=== PATIENT | female | born 1965 | race Caucasian/White ===

== ENCOUNTER 2017-02-08 03:03 | Inpatient (IN) ==
[2017-02-07 14:08] LABS: MANUAL DIFF NEEDED? NO; URINE MICRO REVIEW NEEDED? NO; URINE SOURCE CLEAN CATCH
[2017-02-07 14:13] LABS: BILIRUBIN URINE NEGATIVE (NEGATIVE); BLOOD URINE SMALL (NEGATIVE); COLOR YELLOW; GLUCOSE URINE NEGATIVE (NEGATIVE); LEUKOCYTES URINE SMALL (NEGATIVE); NITRITE URINE NEGATIVE (NEGATIVE); PROTEIN URINE NEGATIVE (NEGATIVE); SP GRAVITY URINE 1.015; TURBIDITY URINE CLEAR (CLEAR); UR EPITHELIAL CELLS <10 /HPF (<10); URINE BACTERIA 1+ /HPF; UROBILINOGEN URINE NORMAL (NORMAL)
[2017-02-07 14:15] LABS: BASO% 0.7 % (0.0-0.8); EOS# 0.19 X1000 (0.0-0.7); EOS% 2.3 % (0.0-10.0); HEMATOCRIT 46.3 % (37.0-47.0); HEMOGLOBIN 15.3 g/dL (12.0-16.0); LYMPH# 2.76 X1000 (1.2-3.4); LYMPH% 33.3 % (20.5-51.1); MCH 31.7 PG (27-31); MCV 95.9 FL (81-99); MONO# 0.73 X1000 (0.11-0.59); MONO% 8.8 % (1.7-9.3); MPV 10.8 FL (7.4-10.4); NEUT% 54.9 % (42.2-75.2); PLT 305 X1000 (130-400); RBC 4.83 XMIL (4.2-5.4)
[2017-02-07 14:22] LABS: PROTIME 10.5 Seconds (9.2-11.7); PTT 26.4 Seconds (22.0-36.0)
[2017-02-07 14:41] LABS: AGAP 12; BUN 10 mg/dL (8-22); CALCIUM 9.5 mg/dL (8.8-10.2); CHLORIDE 99 mmol/L (98-107); COSMO 274; POTASSIUM 4.1 mmol/L (3.5-5.1); SODIUM 138 mmol/L (136-145); TCO2 27 mmol/L (25-35)
--- NOTE | 2017-02-07 16:01 | EKG Report ---
Test Performed on : 02/07/2017 1:45:50 PM Test Reason : PAT Blood Pressure : / mmHG Vent. Rate : 058 BPM Atrial Rate : 058 BPM P-R Int : 114 ms QRS Dur : 072 ms QT Int : 436 ms P-R-T Axes : 055 037 047 degrees QTc Int : 428 ms Sinus bradycardia. Otherwise normal ECG No previous ECGs available Confirmed by Shyam ROSE, Rory Villeda ([id number]) on 02/09/2017 7:15:42 AM
[2017-02-08] MEDS ORDERED: LYRICA ONE (06:05)
[2017-02-08] MEDS ORDERED: REGLAN ONE (06:05)
[2017-02-08] MEDS ORDERED: PEPCID ONE (06:05)
[2017-02-08] MEDS ORDERED: COLACE ONE (06:05)
[2017-02-08] MEDS ORDERED: CELEBREX ONE (06:06)
[2017-02-08] MEDS ORDERED: KEFZOL 2 GM/D5W 0 GM/0 ML IVPB ONE (06:06)
[2017-02-08] MEDS ORDERED: LR 1,000 ML ONE (06:06)
[2017-02-08] MEDS ORDERED: ULTRAM PO PRN (06:33)
[2017-02-08] MEDS ORDERED: DIPRIVAN 1% ONE (06:35)
[2017-02-08] MEDS ORDERED: NORCO-10 PO PRN (06:35)
[2017-02-08] MEDS ORDERED: MORPHINE IV PRN (06:35)
[2017-02-08] MEDS ORDERED: FENTANYL ONE (06:35)
[2017-02-08] MEDS ORDERED: CLINDAMYCIN 600 MG/NS 600 MG/50 ML IVPB ONE (06:49)
[2017-02-08] MEDS ORDERED: TORADOL ONE (06:52)
[2017-02-08] MEDS ORDERED: SODIUM CHLORIDE 0.9% ONE (06:52)
[2017-02-08] MEDS ORDERED: MARCAINE 0.25% PF/EPI 1:200,000 ONE (06:52)
[2017-02-08] MEDS ORDERED: CYKLOKAPRON 1,000 MG/NS 1,000 MG/100 ML IVPB ONE (06:52)
[2017-02-08] MEDS ORDERED: NEOSPORIN G.U. IRRIGANT ONE (06:53)
[2017-02-08] MEDS ORDERED: EXPAREL 1.3% ONE (06:53)
--- NOTE | 2017-02-08 07:44 | HISTORY AND PHYSICAL ---
CHIEF COMPLAINT: Degenerative joint disease of the left hip and hip pain. HISTORY OF PRESENT ILLNESS: Ms. De La Torre is a 51-year-old white female with a history of left hip pain for about 4 years now. She came into the office and x-ray were obtained of her left hip which revealed images consistent with advanced degenerative joint disease. We plan to perform a left total hip arthroplasty today. PAST MEDICAL HISTORY: Hypertension, neuropathy, osteoarthritis, anxiety, and obesity. PAST SURGICAL HISTORY: Hysterectomy, back surgery, A A of the right knee. FAMILY HISTORY: Noncontributory. SOCIAL HISTORY: She is single. She smokes about 10 cigarettes a day. Denies using alcohol. MEDICATIONS: Her current home medications are Ultram 50 mg p.o. q.6 hours p.r.n. for pain, Ativan 1 mg p.o. b.i.d., Soma 350 mg p.o. t.i.d. lisinopril/hydrochlorothiazide 10/12.5 mg tablet 1 p.o. daily, Lyrica 50 mg p.o. daily, Trileptal 150 mg p.o. b.i.d., Mobic 15 mg p.o. daily. ALLERGIES: Ceclor and codeine and morphine. REVIEW OF SYSTEMS: HEENT: The patient wears glasses. Denies any dentures or hearing aids or any other HEENT problems. Cardiac: Patient denies any chest pain, shortness of breath, or history of heart problems. Pulmonary: Patient denies any wheezing, coughing, hemoptysis but does report smoking cigarettes. Gastrointestinal: Patient denies any nausea, vomiting, diarrhea, or any chronic GI problems. Genitourinary: The patient denies any urinary tract infections or any genitourinary problems. Neurological: Patient reports some numbness bilaterally in her feet. Musculoskeletal: Patient reports left hip pain and right knee pain, as well as back pain. PHYSICAL EXAMINATION: GENERAL: The patient is awake, sitting in bed. She is articulate and able to answer questions appropriately. HEENT: Head is normocephalic, atraumatic. Pupils equal, round, reactive to light. Nares patent. Throat without exudate. CARDIAC: S1, S2 auscultated. No murmur, rub, or gallop noted. LUNGS: Clear to auscultation bilaterally in all lung lanza. ABDOMEN: Soft, nontender, nondistended. Bowel sounds present in all quadrants. GENITOURINARY: Not examined. NEUROLOGICAL: Patient has good sensation to dull touch but decreased sensation in her feet bilaterally. MUSCULOSKELETAL: The patient has left hip pain with passive range of motion, as well as palpation of the left hip. IMPRESSION: Degenerative joint disease of the left hip. PLAN: Left total hip arthroplasty. The risks, benefits, and alternatives of the surgery including risk of anesthesia, infection, bleeding, damage to blood vessels, nerves, tendons, ligaments, and no guarantees were discussed with the patient. The patient agrees to proceed with the surgery at this time. Dictated by BURTON Everett for Sterling Villa MD cc: BURTON Everett MD
[2017-02-08 08:15] LABS: URINE MICRO REVIEW NEEDED? NO; URINE SOURCE CATH
[2017-02-08] MEDS ORDERED: LYRICA PO SCH (09:00)
[2017-02-08] MEDS ORDERED: CELEBREX PO SCH (09:00)
[2017-02-08 09:12] LABS: COLOR STRAW; TURBIDITY URINE CLEAR (CLEAR)
[2017-02-08 09:13] LABS: BILIRUBIN URINE NEGATIVE (NEGATIVE); BLOOD URINE TRACE (NEGATIVE); GLUCOSE URINE NEGATIVE (NEGATIVE); LEUKOCYTES URINE SMALL (NEGATIVE); NITRITE URINE NEGATIVE (NEGATIVE); PH URINE 6.5; PROTEIN URINE NEGATIVE (NEGATIVE); SP GRAVITY URINE 1.009; UROBILINOGEN URINE NORMAL (NORMAL)
[2017-02-08 09:14] LABS: UR EPITHELIAL CELLS <10 /HPF (<10); URINE BACTERIA 2+ /HPF; URINE RBC <10 /HPF (<10)
[2017-02-08] MEDS ORDERED: DILAUDID ONE (09:38)
[2017-02-08] MEDS ORDERED: NS 1,000 ML ONE (09:40)
[2017-02-08] MEDS: DILAUDID ONE ×2 (09:45→09:55)
[2017-02-08] MEDS ORDERED: XYLOCAINE-MPF 2% ONE (09:58)
[2017-02-08] MEDS ORDERED: EPHEDRINE ONE (09:58)
[2017-02-08] MEDS ORDERED: LR 2,000 ML ONE (09:58)
[2017-02-08] MEDS ORDERED: ZOFRAN ONE (09:58)
[2017-02-08] MEDS ORDERED: ROBINUL ONE (09:58)
[2017-02-08] MEDS ORDERED: OFIRMEV 1000 MG/ISOTONIC SOLN 1,000 MG/100 ML BOTTLE ONE (09:58)
[2017-02-08] MEDS ORDERED: DECADRON ONE (09:59)
[2017-02-08] MEDS ORDERED: PHENERGAN ONE (10:18)
[2017-02-08] MEDS ORDERED: DEMEROL IV PRN (11:17)
[2017-02-08] MEDS ORDERED: PERCOCET-10 PO PRN (11:17)
--- NOTE | 2017-02-08 12:25 | OPERATIVE NOTE ---
PROCEDURE DATE: 02/08/2017 PREOPERATIVE DIAGNOSIS: Degenerative joint disease, left hip. POSTOPERATIVE DIAGNOSIS: Degenerative joint disease,left hip. PROCEDURE: Left anterior hip replacement. SURGEON: Arturo Villa MD. ASSISTING: BURTON Tobias. ANESTHESIA: General. COMPLICATION: None. PROCEDURE IN DETAIL: This 51-year-old female presents for a left hip replacement. Risks, benefits, and no guarantees were discussed, and the patient is willing to proceed. The patient was taken to the operating room and given satisfactory anesthesia. She was placed on the [place] table, and left hip prepped and draped for an anterior approach. A time-out was taken for operative site, procedure, and patient. An anterior approach to the left hip was undertaken through a roughly 10-12 cm incision starting 1 cm distal and lateral to the anterior-superior iliac spine. Longitudinal incision was made in the fascia of the tensor fascia melvina and blunt dissection along the inner membrane, taken down to the anterior hip capsule. The probe and retractors were placed over the superior and anterior aspect of the femoral neck, and a femoral neck capsulotomy made longitudinally. An osteotomy was then made along the femoral neck at a roughly 45-degree angle, 8-10 mm above the lesser trochanter. The femoral head was removed. Osteophytes were debrided about the acetabulum. Sequential reaming of the acetabulum up to a 53 reamer was undertaken. A DePuy [place] 54 outer diameter HUGHES-coated cup was then impacted in the acetabulum under fluoroscopic guidance in roughly 45 degrees of abduction and 10 degrees of anteversion. An additional 25 length screw was placed in the 12 o'clock position of the cup, but the cup had good stability from impaction. Afterwards, a 36, zero-degree inner diameter polyethylene liner was impacted in the cup. After completion of the acetabulum, the [place] table was used to extend the hip and externally rotate it to facilitate broaching of the proximal femur. Sequential broaching of the femur was then undertaken up to DePuy [place] size 11 stem. This had good axial and rotational stability. A standard neck geometry with a 1.5 neck taper head was then placed on this, with good range of motion and stability of the hip. The trial implant was removed and a standard neck size 11 Corail impacted into the proximal femur with secure axial and rotational stability. A ceramic 1.5 neck length 36 head was impacted onto this and the hip reduced. Final range of motion revealed no anterior instability in extension up to 70 or 80 degrees. Good adventist of leg lengths was achieved as well as alignment of the implants. The C-arm was used to verify accurate hardware placement. The wound was then copiously irrigated with irrigant. The joint capsule was injected with Exparel for pain management. A Hemovac drain was placed. It was then closed with a running 0 Vicryl in the tensor fascia, 2-0 Vicryl in the subcutaneous, and skin rohit. She was then recovered from anesthesia and sterile dressings applied, and transferred to the recovery room in stable condition. No intraoperative complications were noted. Instrument count and sponge count were correct at the time of closure. cc: Sterling Villa MD
[2017-02-08] MEDS: VANCOMYCIN 1 GM/NS 1 GM/250 ML IVPB IV SCH (13:12)
[2017-02-08] MEDS: SOMA PO SCH ×2 (13:13→17:18)
[2017-02-08] MEDS: PRINZIDE 10/12.5MG PO SCH (13:15)
[2017-02-08] MEDS: NS 1,000 ML IV SCH ×2 (13:15→21:23)
[2017-02-08] MEDS ORDERED: CYKLOKAPRON 1,000 MG in NS 100 ML IV ONE ×4 (13:30)
[2017-02-08] MEDS: DEMEROL PO PRN (19:42)
[2017-02-08] MEDS: ATIVAN PO SCH (21:21)
[2017-02-08] MEDS: COLACE PO SCH (21:21)
[2017-02-08] MEDS: PERIDEX MT SCH (21:21)
[2017-02-08] MEDS: TRILEPTAL PO SCH (21:23)
[2017-02-09] MEDS: VANCOMYCIN 1 GM/NS 1 GM/250 ML IVPB IV SCH (00:10)
[2017-02-09] MEDS: DEMEROL PO PRN ×4 (00:11→13:28)
[2017-02-09] MEDS: SOMA PO SCH ×3 (00:11→15:07)
[2017-02-09] MEDS ORDERED: GAVISCON PO PRN (03:27)
[2017-02-09] MEDS ORDERED: XARELTO PO SCH (06:00)
[2017-02-09 06:01] LABS: HEMATOCRIT 35.8 % (37.0-47.0); HEMOGLOBIN 11.7 g/dL (12.0-16.0)
[2017-02-09 06:04] LABS: AGAP 12; BUN 12 mg/dL (8-22); CALCIUM 8.3 mg/dL (8.8-10.2); CHLORIDE 102 mmol/L (98-107); COSMO 278; POTASSIUM 3.8 mmol/L (3.5-5.1); SODIUM 139 mmol/L (136-145); TCO2 25 mmol/L (25-35)
[2017-02-09] MEDS ORDERED: PROTONIX PO ONE (06:13)
[2017-02-09] MEDS: COLACE PO SCH (09:02)
[2017-02-09] MEDS: TRILEPTAL PO SCH (09:02)
[2017-02-09] MEDS: PRINZIDE 10/12.5MG PO SCH (09:02)
[2017-02-09] MEDS: ATIVAN PO SCH (09:03)
[2017-02-09] MEDS: PERIDEX MT SCH (09:54)
[2017-02-09] MEDS ORDERED: ZOFRAN PO PRN (11:09)
[2017-02-09 12:13] VITALS: BP 117/53
--- NOTE | 2017-02-09 17:59 | DISCHARGE SUMMARY ---
ADMISSION DATE: 02/08/2017 DISCHARGE DATE: 02/09/2017 CHIEF DIAGNOSIS: Degenerative joint disease, left hip. ADDITIONAL DIAGNOSES: 1. Hypertension. 2. Neuropathy. 3. Osteoarthritis. 4. Anxiety. 5. Obesity. DISCHARGE DIAGNOSES: 1. Degenerative joint disease of the left hip 2. Hypertension. 3. Neuropathy. 4. Osteoarthritis. 5. Anxiety. 6. Obesity. ADMITTING HISTORY AND HOSPITAL COURSE: Ms. De La Torre is a 51-year-old white female with a history of left hip pain. She was admitted to the hospital yesterday where we performed a left total hip arthroplasty. After her surgery, she remained afebrile. Her vital signs remained stable. Currently her hematocrit is 35.8. Dressing is dry. There are no signs of infection or DVT and she is currently ambulating about 250 feet with a front wheel walker. We plan to discharge her home with home health today where she will work with therapy in her home and she will need to follow up with Dr. Villa in about 10 days to have her rohit removed. DISCHARGE MEDICATIONS: 1. Tramadol 50 mg p.o. q.6 hours p.r.n. 2. Ativan 1 mg p.o. b.i.d. 3. Soma 350 mg p.o. t.i.d. 4. Lisinopril/hydrochlorothiazide 10/12.5 mg tablet 1 p.o. daily. 5. Lyrica 50 mg p.o. daily. 6. Trileptal 150 mg p.o. b.i.d. 7. Demerol 50 mg p.o. q.4 hours to 6 hours p.r.n. for pain. 8. Xarelto 10 mg p.o. daily for 14 days. 9. Phenergan 25 mg p.o. q.6 hours p.r.n. for nausea. DISCHARGE INSTRUCTIONS: Ms. De La Torre is to discharge home today where she will begin a home physical therapy regimen tomorrow. I have discussed her new medications that she will be going home with as well as discussed with her that if she has any worsening signs or symptoms or any fever or chills, to call us immediately at the office. She will need to follow up with Dr. Villa in about 10 days at the office to have her rohit removed. If he needs anything in the meantime, she can call the office. Dictated by BURTON Everett for Sterling Villa MD cc: BURTON Everett MD
== END 2017-02-09 16:15 | disposition home or self-care (01) ==
LOC: SURHOLD 03:03 → 4N 10:18
PROVIDERS: ADMIT Orthopaedic Surgery Adult Reconstructive Orthopaedic Surgery; ATTEND Orthopaedic Surgery Adult Reconstructive Orthopaedic Surgery

== ENCOUNTER 2017-06-21 04:44 | Inpatient (IN) ==
[2017-06-21] MEDS ORDERED: LYRICA ONE (09:44)
[2017-06-21] MEDS ORDERED: KEFZOL 2 GM/D5W 0 GM/0 ML IVPB ONE (09:44)
[2017-06-21] MEDS ORDERED: PEPCID ONE (09:44)
[2017-06-21] MEDS ORDERED: REGLAN ONE (09:44)
[2017-06-21] MEDS ORDERED: CELEBREX ONE (09:44)
[2017-06-21] MEDS ORDERED: COLACE ONE (09:44)
[2017-06-21] MEDS ORDERED: LR 1,000 ML ONE (09:44)
[2017-06-21] MEDS ORDERED: MARCAINE 0.25% PF ONE (09:51)
[2017-06-21] MEDS ORDERED: TORADOL ONE ×2 (09:51→11:58)
[2017-06-21] MEDS ORDERED: SODIUM CHLORIDE 0.9% ONE (09:51)
[2017-06-21] MEDS ORDERED: CYKLOKAPRON 1,000 MG/NS 1,000 MG/100 ML IVPB ONE (09:51)
[2017-06-21] MEDS ORDERED: NEOSPORIN G.U. IRRIGANT ONE (09:52)
[2017-06-21] MEDS ORDERED: EXPAREL 1.3% ONE (09:52)
[2017-06-21] MEDS ORDERED: DURAMORPH ONE (09:58)
[2017-06-21] MEDS ORDERED: VANCOMYCIN 1 GM/NS 1 GM/250 ML IVPB ONE (10:02)
[2017-06-21] MEDS ORDERED: DIPRIVAN 1% ONE (10:02)
[2017-06-21] MEDS ORDERED: XYLOCAINE-MPF 2% ONE (10:02)
[2017-06-21] MEDS ORDERED: ROBINUL ONE (10:02)
[2017-06-21] MEDS ORDERED: DILAUDID ONE (10:03)
[2017-06-21] MEDS ORDERED: OFIRMEV 1000 MG/ISOTONIC SOLN 1,000 MG/100 ML BOTTLE ONE (10:37)
[2017-06-21] MEDS ORDERED: DECADRON ONE (10:37)
[2017-06-21] MEDS ORDERED: ZOFRAN ONE (10:37)
[2017-06-21] MEDS ORDERED: ZEMURON ONE (11:05)
[2017-06-21 11:17] LABS: URINE MICRO REVIEW NEEDED? NO; URINE SOURCE CATH
[2017-06-21 11:27] LABS: BILIRUBIN URINE NEGATIVE (NEGATIVE); BLOOD URINE NEGATIVE (NEGATIVE); COLOR YELLOW; GLUCOSE URINE NEGATIVE (NEGATIVE); LEUKOCYTES URINE SMALL (NEGATIVE); NITRITE URINE NEGATIVE (NEGATIVE); PH URINE 7.5; PROTEIN URINE NEGATIVE (NEGATIVE); SP GRAVITY URINE 1.012; TURBIDITY URINE CLEAR (CLEAR); UR EPITHELIAL CELLS <10 /HPF (<10); URINE BACTERIA NEGATIVE /HPF; URINE RBC <10 /HPF (<10); UROBILINOGEN URINE NORMAL (NORMAL)
[2017-06-21] MEDS: DEMEROL ONE ×3 (12:34→12:49)
[2017-06-21] MEDS ORDERED: NS 1,000 ML ONE (13:05)
[2017-06-21] MEDS ORDERED: AMBIEN PO PRN (14:00)
[2017-06-21] MEDS ORDERED: MILK OF MAGNESIA PO PRN (14:00)
[2017-06-21] MEDS ORDERED: DILAUDID IV PRN (14:00)
[2017-06-21] MEDS: ATIVAN PO SCH ×2 (14:10→20:32)
[2017-06-21] MEDS: SOMA PO SCH ×2 (14:10→17:26)
[2017-06-21] MEDS: PRINZIDE 10/12.5MG PO SCH (14:10)
[2017-06-21] MEDS: DILAUDID PO PRN ×2 (14:17→18:18)
[2017-06-21] MEDS: NS 1,000 ML IV SCH (14:18)
--- NOTE | 2017-06-21 14:38 | OPERATIVE NOTE ---
PROCEDURE DATE: 06/21/2017 PREOPERATIVE DIAGNOSIS: Degenerative joint disease, right hip. POSTOPERATIVE DIAGNOSIS: Degenerative joint disease, right hip. PROCEDURE: Right anterior hip replacement. SURGEON: Arturo Villa MD GEM EXPERT: Boo Cardenas ANESTHESIA: General. COMPLICATION: None. PROCEDURE IN DETAIL: A 51-year-old female presents for right hip replacement. Risks, benefits, and no guarantees were discussed, and she is willing to proceed. She was taken the operating room and satisfactory anesthesia obtained. She was transferred to the [place] table and the right hip prepped and draped in usual sterile fashion. After ensuring proper time-out, an anterior approach to the right hip was undertaken. An incision roughly 1 cm distal and lateral to the anterior superior iliac spine was created and carried anterolaterally over the thigh for roughly 10 cm. Dissection was carried down through the skin to the tensor fascia melvina. The fascia of this muscle was then split in line with the incision. Blunt dissection along the inner membrane undertaken down to the anterior hip capsule. Cobra retractors were placed over the superior and inferior aspect of the femoral neck, and a capsulotomy incision was made. Femoral neck osteotomy was made, and the femoral head removed. Sequential reaming of the acetabulum was undertaken up to a 53 reamer. Good corticocancellous bleeding bone was encountered in the acetabulum. A [place] 54 outer diameter [place] duo fixed cup was then impacted in the acetabulum under fluoroscopic guidance in roughly 45 degrees of abduction and 15 degrees of anteversion. This had good press-fit fixation. A 25 length screw was placed in the 12 o'clock position of the cup for additional security. A 36 inner diameter 0 degree polyethylene liner was impacted in the cup. The cup liner and cup bone interface was checked with good stability. Using the [place] table, the femur was externally rotated and placed in extension to facilitate broaching of the femur. Sequential broaching of the femur up to a size 12 stem was undertaken, with good axial and rotational stability. Standard neck geometry with a -2 neck length on a 36 head ball best reproduced church of even leg lengths, with good stability of the hip. The trial stem was removed and a standard neck size 12 [place] impacted in the proximal femur with secure fixation. The 36 -2 neck length head was impacted onto this, and the hip reduced. C-arm was used to verify accurate component placement, as well as the best possible achievement of church of even leg lengths as possible. Stability of the hip was assessed by externally rotating it roughly 90 degrees and extending the hip to 30 degrees, without any dislocation. The wound was copiously irrigated with irrigant. A Hemovac drain placed. The joint capsule and subcu were injected with Exparel for pain management. The fascia of the tensor was closed with a running #1 Vicryl, the subcutaneous with 2-0 Vicryl, and the skin with skin rohit. Sterile dressings completed the closure, and the patient was recovered from anesthesia and transferred to the recovery room in stable condition. No intraoperative complications were noted. She was recovered from anesthesia and transferred to the recovery room in stable condition. Instrument count and sponge count were correct at time of closure. cc: Sterling Villa MD
[2017-06-21] MEDS: ZOFRAN IV PRN ×2 (14:52→20:32)
--- NOTE | 2017-06-21 16:07 | PROGRESS NOTE ---
DATE: 06/21/2017 SUBJECTIVE: Ms. De La Torre is seen today, status post anterior hip replacement. At the present time, she is comfortable with stable vital signs. Her bandage is clean and dry. She appears to be motor and sensory intact with good range of motion of the ankle and toes. PLAN: I will plan on mobilizing her further tomorrow. At the present time, she is stable. cc: Sterling Villa MD
[2017-06-21] MEDS ORDERED: CYKLOKAPRON 1,000 MG in NS 100 ML IV ONE (17:00)
[2017-06-21] MEDS: TYLENOL PO SCH (17:31)
[2017-06-21] MEDS: ULTRAM PO SCH (17:32)
[2017-06-21] MEDS: LYRICA PO SCH (20:32)
[2017-06-21] MEDS: PERIDEX MT SCH (20:32)
[2017-06-21] MEDS: CELEBREX PO SCH ×2 (20:33→20:41)
[2017-06-21] MEDS: COLACE PO SCH (20:33)
[2017-06-21] MEDS ORDERED: VANCOMYCIN 1 GM/NS 1 GM/250 ML IVPB IV ONE (22:00)
[2017-06-22] MEDS: TYLENOL PO SCH ×2 (00:13→05:40)
[2017-06-22] MEDS: NS 1,000 ML IV SCH ×2 (00:14→01:43)
[2017-06-22] MEDS: ULTRAM PO SCH ×2 (00:15→05:41)
[2017-06-22 05:26] LABS: HEMATOCRIT 37.4 % (37.0-47.0); HEMOGLOBIN 12.3 g/dL (12.0-16.0)
[2017-06-22 05:52] LABS: AGAP 8; BUN 10 mg/dL (8-22); CALCIUM 8.6 mg/dL (8.8-10.2); CHLORIDE 104 mmol/L (98-107); COSMO 280; POTASSIUM 4.1 mmol/L (3.5-5.1); SODIUM 140 mmol/L (136-145); TCO2 28 mmol/L (25-35)
[2017-06-22] MEDS ORDERED: XARELTO PO SCH (06:00)
[2017-06-22] MEDS: ATIVAN PO SCH (08:24)
[2017-06-22] MEDS: DILAUDID PO PRN (08:24)
[2017-06-22] MEDS: LYRICA PO SCH (08:24)
[2017-06-22] MEDS: COLACE PO SCH (08:24)
[2017-06-22] MEDS: CELEBREX PO SCH (08:24)
[2017-06-22] MEDS: PRINZIDE 10/12.5MG PO SCH (08:24)
[2017-06-22] MEDS: SOMA PO SCH (08:24)
[2017-06-22] MEDS: PERIDEX MT SCH (08:25)
--- NOTE | 2017-06-22 08:33 | DISCHARGE SUMMARY ---
ADMISSION DATE: 06/21/2017 DISCHARGE DATE: 06/22/2017 DIAGNOSIS: Degenerative joint disease of the hip. ADDITIONAL DIAGNOSIS: Hypertension. ADMITTING HISTORY AND HOSPITAL COURSE: This 51-year-old female was admitted the hospital for hip replacement. She underwent an anterior hip replacement without complication. Postoperatively, she remained afebrile with stable vital signs. Hematocrit was relatively stable. She is mobilizing well today with no signs of complication, infection, or DVT. He is discharged home for outpatient followup. She is to return roughly 12-13 days for staple removal. She is to return in the interim for any worsening signs or symptoms. DISCHARGE MEDICATIONS: Include Demerol 50 mg q.4 hours p.r.n. pain, Lasix 20 mg daily, lisinopril/HCTZ 10/12.5 daily, lorazepam 1 mg p.r.n., Mobic 15 mg daily, oxcarbazepine 150 mg daily. She is also on Xarelto 10 mg daily for 3 weeks for DVT prophylaxis. cc: Sterling Villa MD
[2017-06-22] MEDS ORDERED: PNEUMOVAX 23 IM ONE (08:45)
[2017-06-22] MEDS ORDERED: PEPCID PO SCH (09:00)
[2017-06-22 12:24] VITALS: BP 130/56
== END 2017-06-22 11:29 | disposition home health service (06) ==
LOC: SURHOLD 04:44 → 4N 10:31
PROVIDERS: ADMIT Orthopaedic Surgery Adult Reconstructive Orthopaedic Surgery; ATTEND Orthopaedic Surgery Adult Reconstructive Orthopaedic Surgery